=== PATIENT | female | born 1950 | race Caucasian/White ===

== ENCOUNTER → 2019-01-29 | Outpatient (CLI) | payer OTHER ==
[~2019-01-29] MED LIST: ALBU90OI6 INH; ALLO100 PO; AMIT10 PO; ATOR20 PO; Amlodipine Bes2.5 MG PO; BUME2 PO; CALC.25 PO; CIPR500 PO; CLON.1 PO; CONEST.625 PO; EPLE25 PO; GABA400 PO; GEMF600 PO; GLIP10 PO; INSDET100; INSLI100I SUBQ; INSLI75/25 SC; LEVEMIR FL100 UNIT/1 SQ; LEVSOD125 PO; METO100ER PO; MOMENI; PHENA200 PO; POTCHL20ER PO; Prinivil10 MG PO; SITA100T2 PO; VASCEPA1 GM PO
== END | disposition home or self-care (01) ==
LOC: PLD 08:06 → LAB SHORT 08:06
DX: L57.0 Actinic keratosis (principal)
CPT/HCPCS: 88305

== ENCOUNTER 2023-05-09 07:53 | Day surgery (SDC) | payer OTHER ==
[~2023-05-09] VITALS: Ht 160 cm; Wt 82.6 kg
[2023-05-09] MEDS ORDERED: METFORMIN ER G500 MG PO (08:51)
[2023-05-09] MEDS ORDERED: FOLI1 PO (08:52)
[2023-05-09] MEDS ORDERED: METTREX2.5 PO (08:52)
--- NOTE | 2023-05-09 09:01 | NUR ---
05/09/23 0901 Nan Morrison CALL LIGHT WITHIN REACH. TETRACAINE IN RIGHT EYE AT 0847 AND PLEDGETT IN AT 0848
[2023-05-09 10:02] VITALS: BP 155/66
--- NOTE | 2023-05-09 10:08 | NUR ---
05/09/23 1008 Ashish Balderrama iv removeD INTACT. SITE WNL.
== END 2023-05-09 10:19 | disposition home or self-care (01) ==
LOC: ORSCSDS 07:53
PROVIDERS: Student in an Organized Health Care Education/Training Program
PROC: 08RJ3JZ Replacement of Right Lens with Synthetic Substitute, Percutaneous Approach (ICD-10-PCS; principal; 2023-05-09 09:30)
DX: E11.36 Type 2 diabetes mellitus with diabetic cataract (principal); I12.9 Hypertensive chronic kidney disease with stage 1 through stage 4 chronic kidney disease, or unspecified chronic kidney disease; N18.9 Chronic kidney disease, unspecified; E07.9 Disorder of thyroid, unspecified; G47.33 Obstructive sleep apnea (adult) (pediatric); Z79.4 Long term (current) use of insulin; Z79.899 Other long term (current) drug therapy
CPT/HCPCS: 82947; J2250; J3010; J7040; V2632

== ENCOUNTER 2023-05-16 08:07 | Day surgery (SDC) | payer OTHER ==
[~2023-05-16] VITALS: Ht 160 cm; Wt 81.5 kg
[~2023-05-16 08:07] MED LIST changes: +FOLI1 PO; +METFORMIN ER G500 MG PO; +METTREX2.5 PO
[2023-05-16] MEDS ORDERED: GUAI200 PO (08:54)
--- NOTE | 2023-05-16 08:58 | NUR ---
05/16/23 0858 Mary Nickerson AT 0826 PLEROSALINDAET AT 0889
[2023-05-16 10:00] VITALS: BP 134/57
--- NOTE | 2023-05-16 10:13 | NUR ---
05/16/23 1013 Ashish Balderrama IV REMOVED INTACT. SITE WNL. P/T STATES RECORDED B/P WITHING 20% OF BASELINE AT HOME.
== END 2023-05-16 10:08 | disposition home or self-care (01) ==
LOC: ORSCSDS 08:07
PROVIDERS: Student in an Organized Health Care Education/Training Program
PROC: 08RK3JZ Replacement of Left Lens with Synthetic Substitute, Percutaneous Approach (ICD-10-PCS; principal; 2023-05-16 09:30)
DX: E13.36 Other specified diabetes mellitus with diabetic cataract (principal); I12.9 Hypertensive chronic kidney disease with stage 1 through stage 4 chronic kidney disease, or unspecified chronic kidney disease; N18.9 Chronic kidney disease, unspecified; G47.33 Obstructive sleep apnea (adult) (pediatric); E07.9 Disorder of thyroid, unspecified; Z79.4 Long term (current) use of insulin; Z79.899 Other long term (current) drug therapy
CPT/HCPCS: 82947; J2250; J3010; J7040; V2632

== ENCOUNTER 2024-06-05 08:31 | Day surgery (SDC) | payer OTHER ==
[2024-06-05] VITALS (13 sets, daily range): BP systolic 142–206; BP diastolic 63–74
[~2024-06-05] VITALS: Ht 157.5 cm; Wt 81.2 kg
[~2024-06-05 08:31] MED LIST changes: +GUAI200 PO
--- NOTE | 2024-06-05 09:24 | NUR ---
PT AMBULATED TO BR TO VOID. PT'S IN ROOM.
[2024-06-05] MEDS ORDERED: Nitroglycerin 2 MG/20 ML BTL ONE (10:05)
[2024-06-05] MEDS ORDERED: Verapamil HCL 2.5 MG/ML 2ML Injection ONE (10:05)
[2024-06-05] MEDS ORDERED: Heparin Sodium 1000 Units/ML 10ML MDV ONE ×2 (10:05→11:54)
[2024-06-05] MEDS ORDERED: NS 250 ML IV ONE (10:05)
[2024-06-05] MEDS ORDERED: NS 1,000 ML IV ONE ×2 (10:05→10:53)
[2024-06-05] MEDS ORDERED: Midazolam HCl 1MG / ML 2ML Vial ONE (10:53)
[2024-06-05] MEDS ORDERED: FentaNYL Citrate 50 MCG/ML 2 ML Injection ONE (10:53)
[2024-06-05] MEDS ORDERED: Aspirin 325 MG Tab ONE (11:08)
[2024-06-05] MEDS ORDERED: HydrALAZINE HCl 20 MG / ML 1ML Vial ONE (11:55)
--- NOTE | 2024-06-05 13:32 | NUR ---
PT RETURNED TO RECOVERY ROOM IN BED. R RADIAL TR BAND SITE SOFT NON-TENDER WITH NO HEMATOMA, NO PULSATILE BLEEDING AND RIGHT WRIST BOARD IN PLACE. RIGHT FEMORAL GROIN SITE SOFT NON-TENDER WITH NO HEMATOMA, NO PULSATILE BLEEDING AND INTACT DRESSING. PT DENIES CP. PUREWICK PLACED. CALL LIGHT IN REACH.
[2024-06-05] MEDS ORDERED: Aspir 8181 MG PO (13:41)
--- NOTE | 2024-06-05 13:49 | NUR ---
NO CHANGES TO R RAD OR R FEM GROIN SITES.
--- NOTE | 2024-06-05 14:24 | NUR ---
NO CHANGES TO R RAD OR R FEM GROIN SITES. PT'S IN ROOM.
--- NOTE | 2024-06-05 14:56 | NUR ---
11 CC OF AIR REMOVED OUT OF NOW DEFLATED RIGHT TR BAND OVER 10 MIN. R RAD SITE SOFT NON-TENDER WITH NO HEMATOMA, NO PULSATILE BLEEDING. NO CHANGES TO R FEM GROIN SITE. R DP PULSE STILL DOPPLER. DISCHARGE INSTRUCTIONS REVIEWED ALL QUESTIONS ANSWERED. FULL REPORT PROVIDED BRYAN Ortega RN TO ASSUME CARE OF PT.
--- NOTE | 2024-06-05 15:05 | NUR ---
groin site soft and non-tender per pt. radial site soft and non-tender per pt. no bleeding noted at either site.
--- NOTE | 2024-06-05 15:39 | NUR ---
groin site soft and non-tender per pt. radial site soft and non-tender per pt. no bleeding noted at eitehr site.
--- NOTE | 2024-06-05 15:41 | NUR ---
dp pulse present in r foot.
--- NOTE | 2024-06-05 15:41 | NUR ---
pt sat at 30 degrees.
--- NOTE | 2024-06-05 16:50 | NUR ---
pt given dc instructions and verbalized understanding. iv out. cloth dot, arm board, and sling applied. groin site and radial site soft and non-tender per pt. no bleeding noted at either site. pt chnaged. pt to lby via motorized scooter w/ . to drive pt home.
== END 2024-06-05 16:50 | disposition home or self-care (01) ==
LOC: MHTC 08:31
DX: I35.0 Nonrheumatic aortic (valve) stenosis (principal); I25.10 Atherosclerotic heart disease of native coronary artery without angina pectoris; I25.82 Chronic total occlusion of coronary artery; I12.9 Hypertensive chronic kidney disease with stage 1 through stage 4 chronic kidney disease, or unspecified chronic kidney disease; E11.22 Type 2 diabetes mellitus with diabetic chronic kidney disease; N18.9 Chronic kidney disease, unspecified; E78.5 Hyperlipidemia, unspecified; Z88.2 Allergy status to sulfonamides; Z88.1 Allergy status to other antibiotic agents; Z88.5 Allergy status to narcotic agent; Z88.0 Allergy status to penicillin; Z79.82 Long term (current) use of aspirin; Z79.84 Long term (current) use of oral hypoglycemic drugs; Z79.899 Other long term (current) drug therapy
CPT/HCPCS: 76937; 82947; 93454; 99152; 99153; A9270; C1769; C1887; C1894; J0360; J1644; J2250; J3010; J7030; J7050; Q9967

== ENCOUNTER 2024-07-15 07:00 | Observation (INO) | payer OTHER ==
[~2024-07-15] VITALS: Ht 157.5 cm; Wt 78.7 kg
[2024-07-15] VITALS (24 sets, daily range): BP systolic 115–194; BP diastolic 49–90
[~2024-07-15 07:00] MED LIST changes: +ATOR10 PO; -ATOR20 PO; +Aspir 8181 MG PO; +HUMALOG MI100 UNIT/2 SC; -LEVSOD125 PO; +LEVSOD150 PO
[2024-07-15] MEDS ORDERED: CATAPRES0.3 MG PO (07:47)
[2024-07-15] MEDS ORDERED: Ticagrelor 90 MG TABLET ONE (09:28)
[2024-07-15] MEDS ORDERED: Heparin Sodium 1000 Units/ML 10ML MDV ONE ×3 (09:31→11:12)
[2024-07-15] MEDS ORDERED: NS 1,000 ML IV ONE ×2 (09:31→09:32)
[2024-07-15] MEDS ORDERED: Nitroglycerin 2 MG/20 ML BTL ONE (09:32)
[2024-07-15] MEDS ORDERED: NS 250 ML IV ONE (09:32)
[2024-07-15] MEDS ORDERED: Midazolam HCl 1MG / ML 2ML Vial ONE (10:01)
[2024-07-15] MEDS ORDERED: FentaNYL Citrate 50 MCG/ML 2 ML Injection ONE (10:01)
[2024-07-15] MEDS ORDERED: HydrALAZINE HCl 20 MG / ML 1ML Vial ONE (10:45)
[2024-07-15] MEDS ORDERED: Lidocaine 2%-Epineph 1:100000 20 ML MDV ONE (13:30)
--- NOTE | 2024-07-15 13:30 | NUR ---
PT R FEMORAL OOZING AT SITE. MANUAL PRESSURE HELD UNTIL HEMOSTASIS. DR CRABTREE AWARE. CONTINUING TO MONITOR. VSS.
[2024-07-15] MEDS ORDERED: Nitroglycerin 0.4 MG SUBL ONE (14:13)
--- NOTE | 2024-07-15 14:21 | NUR ---
PT RESTING COMFORTABLY AT THIS TIME. VSS. NADN. PT GIVEN SL NITRO X 1 FOR CONTINUOUS CP. REPORTS CP HAS REDUCED SINCE SL NITRO. CONTINUOUS MONITORING IN PLACE. R FEMORAL SITE REMAINS C/D/I. DR CRABTREE SPOKE WITH PATIENT AND FAMILY REGARDING ADMISSION FOR THE NIGHT. AWAITING BED ASSIGNMENT AT THIS TIME.
[2024-07-15] MEDS ORDERED: CLOP75 PO (14:43)
--- NOTE | 2024-07-15 14:45 | NUR ---
REPORT GIVEN TO LISA RN PCU. VSS. CABAN. PT R FEMORAL SITE REMAINS STABLE. NO BLEEDING OR HEMATOMA NOTED. PT TO PCU 19 FOR CONTINUATION OF CARE.
[2024-07-15] MEDS ORDERED: Magnesium Hydroxide Conc 10 ML UDC PO PRN (14:50)
[2024-07-15] MEDS ORDERED: Bisacodyl 10 MG Supp PR PRN (14:55)
[2024-07-15] MEDS ORDERED: FLU VACC TS2024-25(6MOS UP)/PF 45 MCG/0.5 ML SYRINGE IM SCH (14:55)
[2024-07-15] MEDS ORDERED: Nitroglycerin 0.4 MG SUBL SL PRN (15:15)
[2024-07-15] MEDS ORDERED: Bumetanide 1 MG Tab PO PRN (15:45)
[2024-07-15] MEDS ORDERED: Albuterol HFA200 ACT/6.7 GM INH INH PRN (15:55)
--- NOTE | 2024-07-15 16:35 | NUR ---
PT [facility] AT 1455 THIS AFTERNOON THE PT IS A&OX4, CALLS APPROPRAITELY, AND MAKES HER NEEDS KNOWN. SHE CAME IN WITH RIGHT GROIN ACCESS. SITE TENDER, BUT W/O BLEEDING OR HEMATOMA. DRESSING C/D/I. STENTS CARDS WERE GIVEN TO THE PT AND ARE IN HER PURSE. ON TELE SHE IS SR 60'S, BP STABLE. SHE IS ON RA W/ SP02 >93%. SHE DENIES SOB. THE PT DOES REPORT 3/10 MIDSTERNAL CHEST PAIN. PAIN TOLERABLE AT THIS TIME. SEQUENCE VITAL SIGNS TAKEN PER PROTOCOL. SEE NOTES FOR UPDATES.
--- NOTE | 2024-07-15 16:53 | NUR ---
Patient is lying in bed and alert. She tells me about her medical problems and about the procedure performed today. She also explains about her spouse Zechariah and his recent diagnosis of ALS, about their strong Islam marti and about their new hopes and dreams. I provided therapeutic listeing, theological insights and prayer. Patient responded well and showed signs of reduced stress.
--- NOTE | 2024-07-15 17:22 | NUR ---
DR. DUARTE CALLED ABOUT CBG 350. HE WANTS THE PT'S 2100 DOSE OF HUMLG MIX GIVEN NOW.
[2024-07-15] MEDS ORDERED: Acetaminophen 325 MG TABLET PO PRN (17:50)
--- NOTE | 2024-07-15 18:20 | NUR ---
SHIFT SUMMARY THE PT IS A&OX4, CALLS APPROPRAITELY, MAKES HER NEEDS KNOWN. THE PT IS NOW ABLE TO GET OOB D/T RIGHT GROIN SITE RECOVERY. VITAL SIGNS REMAIN STABLE. HER RIGHT GROIN IS [employer] OFFICER, SHE WAS MEDICATED PER EMAR W/ TYLENOL. THE DRESSING IS C/D/I. PT USED A PURWICK WHILE ON BEDREST. SHE IS ABLE TO GET OOB 1P ASSIST W/ FWW. ON TELE THE PT HAS BEEN SR AND BP IS STABLE. CHEST PAIN HAS RESOLVED SINCE THE PT HAS BEEN ABLE TO SIT UP IN THE BED. NO ADDITIONAL NITRO GIVEN SINCE IT WAS GIVEN IN THE RECOVERY ROOM. NITRO SL IN EMAR PRN. SHE IS ON RA AND SP02 >93%. THE PT DENIES ANY SOB. DR. MASON ROUNDED ON THE PT THIS EVENING, NO NEW ORDERS. SHE IS ACHS CBG CHECKS AND HER EVENING BLOOD SUGAR WAS 350. DR. DUARTE WANTED THE 2100 DOSE OF INSULIN GIVEN WITH DINNER. SEE NOTES FOR ANY UPDATES.
[2024-07-15] MEDS ORDERED: Insulin Lisp Protam 75/Lisp 25 100 Unit/ML 3ML Pen SC SCH ×2 (21:00)
[2024-07-15] MEDS ORDERED: INSULIN LISPRO SC SCH (21:00)
[2024-07-15] MEDS ORDERED: Metoprolol Succinate 50 MG TABCR PO SCH (21:00)
[2024-07-15] MEDS ORDERED: INSULIN NPL SC SCH (21:00)
[2024-07-15] MEDS ORDERED: Lisinopril 10 MG Tab PO SCH (21:00)
[2024-07-15] MEDS ORDERED: Docusate Sodium 100 MG Cap PO SCH (21:00)
[2024-07-15] MEDS ORDERED: CloNIDine HCl 0.2 MG Tab PO SCH (21:00)
[2024-07-15] MEDS ORDERED: Gemfibrozil 600 MG Tab PO SCH (21:00)
[2024-07-15] MEDS ORDERED: Gabapentin 400 MG Cap PO SCH (21:00)
[2024-07-15] MEDS ORDERED: Sennosides 8.6 MG Tab PO SCH (21:00)
[2024-07-16] VITALS (7 sets, daily range): BP systolic 123–163; BP diastolic 53–60
[2024-07-16 04:57] LABS: BASOPHILS ABSOLUTE AUTO 0.02 K/mm3 (0.00-0.23); BASOPHILS PERCENT AUTO 0 % (0-2); EOSINOPHILS ABSOLUTE AUTO 0.15 K/mm3 (0.00-0.68); EOSINOPHILS PERCENT AUTO 2 % (0-6); Hematocrit 31.4 % (33.0-51.0); Hemoglobin 10.9 g/dL (11.5-16.0); IMMATURE GRAN ABSOLUTE AUTO 0.03 K/mm3 (0.00-0.10); IMMATURE GRAN PERCENT AUTO 0 % (0-1); LYMPHOCYTES ABSOLUTE AUTO 1.34 K/mm3 (0.84-5.20); LYMPHOCYTES PERCENT AUTO 16 % (21-46); MONOCYTES ABSOLUTE AUTO 0.92 K/mm3 (0.16-1.47); MONOCYTES PERCENT AUTO 11 % (4-13); Mean Corpuscular HGB 32.9 pg (26.0-34.0); Mean Corpuscular HGB Conc 34.7 g/dL (31.5-36.5); Mean Corpuscular Volume 95 fL (80-100); Mean Platelet Volume 9.7 fL (9.1-12.4); NEUTROPHILS ABSOLUTE AUTO 5.69 K/mm3 (1.96-9.15); NEUTROPHILS PERCENT AUTO 70 % (41-73); Platelet Count 162 K/mm3 (150-400); RDW Coefficient Variation 13.2 % (11.7-14.2); RDW Standard Deviation 45.2 fL (35.1-46.3); Red Blood Cell Count 3.31 M/mm3 (3.80-5.20); White Blood Cell Count 8.15 K/mm3 (4.00-11.30)
[2024-07-16 05:20] LABS: Albumin, Blood 3.1 g/dL (3.4-5.0); Anion Gap 8 mmol/L (3-11); Blood Urea Nitrogen 45 mg/dL (8-24); Bun/Creatinine Ratio 36.6 (12.0-20.0); CO2, Blood 27 mmol/L (21-32); Calcium, Blood 9.8 mg/dL (8.5-10.1); Chloride, Blood 108 mmol/L (98-108); Creatinine, Blood 1.23 mg/dL (0.40-1.00); Glomerular Filtration Rate 47 (60-); Glucose, Blood 144 mg/dL (70-99); Magnesium, Blood 2.3 mg/dL (1.6-2.4); Phosphorus, Blood 4.1 mg/dL (2.5-4.9); Potassium, Blood 3.7 mmol/L (3.5-5.5); Sodium, Blood 139 mmol/L (136-145)
[2024-07-16] MEDS ORDERED: Levothyroxine Sodium 0.15 MG Tab PO SCH (06:00)
--- NOTE | 2024-07-16 06:56 | NUR ---
PT STABLE THROUGHOUT SHIFT. VS REMAIN WNL, PT AOX4, SBA TO BSC. PT ABLE TO USE CALL LIGHT APPROPRIATELY. BED IN LOWEST POSITION, BRAKES ON, UPPER SIDE RAILS UP, CALL LIGHT AND BED SIDE TABLE IN REACH. RT GROIN SITE REMAINS INTACT, NO S/S HEMATOMA OR BLEEDING. PT DOES REPORT PAIN AT SITE WHICH IS MANAGED WITH TYLENOL WELL. PT DID RECEIVE EXTRA INSULIN COVERAGE AND DID WELL, NO S/S HYPOGLYCEMIA. PT WAS ABLE TO SLEEP MOST OF THE SHIFT AND REPORTED NO PROBLEMS.
[2024-07-16] MEDS ORDERED: Insulin Human Lispro 100 Units/ML 3ML Syringe SC SCH (07:30)
[2024-07-16] MEDS ORDERED: Allopurinol 100 MG Tab PO SCH (09:00)
[2024-07-16] MEDS ORDERED: Bumetanide 1 MG Tab PO SCH (09:00)
[2024-07-16] MEDS ORDERED: Eplerenone 25 MG Tab PO SCH (09:00)
[2024-07-16] MEDS ORDERED: Aspirin 81 MG TabEC PO SCH (09:00)
[2024-07-16] MEDS ORDERED: AmLODIPine Besylate 5 MG Tab PO SCH ×2 (09:00)
[2024-07-16] MEDS ORDERED: Atorvastatin 10 MG Tab PO SCH (09:00)
[2024-07-16] MEDS ORDERED: Folic Acid 1 MG TAB PO SCH (09:00)
[2024-07-16] MEDS ORDERED: Clopidogrel Bisulfate 75 MG Tab PO SCH (09:00)
[2024-07-16] MEDS ORDERED: Heparin Sodium 5000 Units/ML 1ML MDV SC SCH (09:00)
[2024-07-16] MEDS ORDERED: Clopidogrel Bisulfate 300 MG Cap PO ONE (09:00)
[2024-07-16] MEDS ORDERED: AmLODIPine Besylate 5 MG Tab PO ONE (09:05)
--- NOTE | 2024-07-16 12:03 | NUR ---
DISCHARGE NOTE VSS, PT DENIED FEELINGS OF CHEST PAIN/PRESSURE. R GROIN SITE FROM S/P ANGIOGRAM WAS FREE FROM ANY APPARENT BLEEDING/HEMATOMA, DRESSING WAS REMOVED BY THIS RN, SITE WAS CLEANED AND BANDAGE APPLIED. THIS RN DISCUSSED DISCHARGE INSTRUCTIONS INCLUDING POST ANGIO SITE CARE, FOLLOW UP APPOINTMENTS AND MEDICATION REGIMEN. PT LEFT PCU AT APPROX. 1200 VIA WHEELCHAIR AND WAS ESCORTED BY MARIAN VASQUEZ.
[2024-07-17] MEDS ORDERED: Clopidogrel Bisulfate 75 MG Tab PO SCH (09:00)
[2024-07-17] MEDS ORDERED: AmLODIPine Besylate 5 MG Tab PO SCH (09:00)
== END 2024-07-16 13:23 | disposition home or self-care (01) ==
LOC: MHTC 07:00 → PCU 07:02
PROVIDERS: Family Medicine; ADMIT Family Medicine
DX: I35.0 Nonrheumatic aortic (valve) stenosis (principal); E78.5 Hyperlipidemia, unspecified; I25.10 Atherosclerotic heart disease of native coronary artery without angina pectoris; I12.9 Hypertensive chronic kidney disease with stage 1 through stage 4 chronic kidney disease, or unspecified chronic kidney disease; E11.22 Type 2 diabetes mellitus with diabetic chronic kidney disease; N18.9 Chronic kidney disease, unspecified; E78.00 Pure hypercholesterolemia, unspecified; E03.9 Hypothyroidism, unspecified; L40.9 Psoriasis, unspecified; Z88.0 Allergy status to penicillin; Z88.2 Allergy status to sulfonamides; Z88.8 Allergy status to other drugs, medicaments and biological substances
CPT/HCPCS: 36415; 76937; 80048; 80069; 82947; 83735; 85007; 85025; 85027; 85347; 85610; 92978; 93005; 93010; 93454; 94762; 96372; 99152; 99153; A9270; C1725; C1753; C1760; C1761; C1769; C1874; C1887; C1894; C9600; G0378; J0360; J1644; J1815; J2250; J3010; J7030; J7050; Q9967

== ENCOUNTER 2024-08-15 12:06 | Inpatient (IN) | payer OTHER ==
[~2024-08-15] VITALS: Ht 157.5 cm; Wt 86.4 kg
[2024-08-15] VITALS (22 sets, daily range): BP systolic 152–205; BP diastolic 55–78
[~2024-08-15 12:06] MED LIST changes: +BUME1 PO; -BUME2 PO; +CLONIDINE PO; +CLOP75 PO
[2024-08-15 13:45] LABS: BASOPHILS ABSOLUTE AUTO 0.03 K/mm3 (0.00-0.23); BASOPHILS PERCENT AUTO 0 % (0-2); EOSINOPHILS ABSOLUTE AUTO 0.12 K/mm3 (0.00-0.68); EOSINOPHILS PERCENT AUTO 1 % (0-6); Hematocrit 26.8 % (33.0-51.0); IMMATURE GRAN ABSOLUTE AUTO 0.04 K/mm3 (0.00-0.10); IMMATURE GRAN PERCENT AUTO 0 % (0-1); LYMPHOCYTES ABSOLUTE AUTO 1.12 K/mm3 (0.84-5.20); LYMPHOCYTES PERCENT AUTO 12 % (21-46); MONOCYTES ABSOLUTE AUTO 0.89 K/mm3 (0.16-1.47); MONOCYTES PERCENT AUTO 9 % (4-13); Mean Corpuscular HGB 32.4 pg (26.0-34.0); Mean Corpuscular HGB Conc 33.6 g/dL (31.5-36.5); Mean Corpuscular Volume 96 fL (80-100); NEUTROPHILS ABSOLUTE AUTO 7.32 K/mm3 (1.96-9.15); NEUTROPHILS PERCENT AUTO 77 % (41-73); Platelet Count 108 K/mm3 (150-400); RDW Coefficient Variation 13.5 % (11.7-14.2); Red Blood Cell Count 2.78 M/mm3 (3.80-5.20); White Blood Cell Count 9.52 K/mm3 (4.00-11.30)
[2024-08-15 13:53] LABS: International Normalized Ratio 1.04; Prothrombin Time Results 11.1 Sec (9.7-11.5)
[2024-08-15 14:23] LABS: Albumin, Blood 2.7 g/dL (3.4-5.0); Albumin/Globulin Ratio 0.7 (0.8-1.8); Bilirubin, Total 0.4 mg/dL (0.1-1.0); Bun/Creatinine Ratio 14.1 (12.0-20.0); Calcium, Blood 8.9 mg/dL (8.5-10.1); Creatinine, Blood 5.19 mg/dL (0.40-1.00); Globulin, Blood 3.7 g/dL (2.2-4.0); Potassium, Blood 6.7 mmol/L (3.5-5.5); Total Protein, Blood 6.4 g/dL (6.4-8.2)
[2024-08-15] MEDS ORDERED: CALCIUM GLUC IN NACL, ISO-OSM 100 ML IV ONE (14:30)
[2024-08-15] MEDS ORDERED: Insulin Regular 100 Unit/ML 1ML Dose IV ONE (14:35)
[2024-08-15] MEDS ORDERED: Dextrose 50% 50 ML Syringe IV ONE (14:35)
[2024-08-15] MEDS ORDERED: Dextrose 50% 50 ML Vial IV ONE (15:00)
[2024-08-15] MEDS ORDERED: TraZODone HCl 50 MG Tab PO PRN (15:20)
[2024-08-15] MEDS ORDERED: Bisacodyl 10 MG Supp PR PRN (15:20)
[2024-08-15] MEDS ORDERED: Magnesium Hydroxide Conc 10 ML UDC PO PRN (15:20)
[2024-08-15] MEDS ORDERED: FLU VACC TS2024-25(6MOS UP)/PF 45 MCG/0.5 ML SYRINGE IM SCH (15:20)
[2024-08-15] MEDS ORDERED: Ondansetron 4 MG TAB PO PRN (15:25)
[2024-08-15] MEDS ORDERED: HydrALAZINE HCl 20 MG / ML 1ML Vial IV PRN (16:10)
[2024-08-15 16:23] LABS: Influenza A, PCR NEGATIVE (NEGATIVE); Influenza B, PCR NEGATIVE (NEGATIVE); Resp Syncytial Virus, PCR NEGATIVE (NEGATIVE); SARS-Cov-2 (COVID-19) PCR, MMC NEGATIVE (NEGATIVE)
[2024-08-15] MEDS ORDERED: Insulin Human Lispro 100 Units/ML 3ML Syringe SC SCH (16:30)
[2024-08-15] MEDS ORDERED: Heparin Sodium 1000 Units/ML 10ML MDV ONE (16:31)
[2024-08-15] MEDS ORDERED: NS 1,000 ML IV ONE (16:32)
[2024-08-15] MEDS ORDERED: Midazolam HCl 1MG / ML 2ML Vial ONE (16:32)
[2024-08-15] MEDS ORDERED: NS 500 ML IV ONE (16:32)
[2024-08-15] MEDS ORDERED: FentaNYL Citrate 50 MCG/ML 2 ML Injection ONE (16:33)
[2024-08-15] MEDS ORDERED: Isosorbide Mono30 MG PO (18:10)
--- NOTE | 2024-08-15 18:42 | NUR ---
THIS RN ASSUMED CARE AT 1810, PT IS STABLE, VITAL SIGNS HR: 57, SPO2: 92%, RR:20, BLOOD PRESSURE 152/63 MAP OF 88. LASHANDA SYED RN AND CAYLA ABEL RN HELPED WITH ADMITTING PAPERWORK AND HELPED SETTLE PT. PAGE DESIGNER NURSE TAKING OVER.
--- NOTE | 2024-08-15 19:49 | NUR ---
ASSUMED CARE AT 1900 PATIENT LETHARGIC AT TIMES. RESPONDS TO VERBAL STIMULI AND ABLE TO HOLD A CONVERSATIONS. ORIENTED X4. SP02 96% ON 1L VIA NC, DENIES SOB. HR SB 57, STATES SOME SLIGHT CP 08/19 SINCE TAVR ON 08/12. BP STABLE. BILATERAL GROIN SITES AND LEFT RADIAL WITH SMALL AMOUNT OF BRUISING, ALL DRESSINGS C/D/I. PUREWICK IN PLACE. PATIENT ABLE TO REPOSITION IN BED. TO DIALYSIS AT APPROX 1945
[2024-08-15] MEDS ORDERED: Lactobacil 2-S.Thermo-Bifido 1 1 Cap PO SCH (21:00)
[2024-08-15] MEDS ORDERED: Famotidine 20 MG Tab PO SCH (21:00)
--- NOTE | 2024-08-15 22:09 | NUR ---
PATIENT BACK FROM DIALYSIS TO ICU 2. PATIENT IS ALERT AND ORIENTED X4. 2L NC, SP02 97%. HR SR 70s, BP HYPERTENSIVE. DENIES CP PRESSURE. PUREWICK IN PLACE. CALL LIGHT IN REACH
[2024-08-16] VITALS (33 sets, daily range): BP systolic 122–196; BP diastolic 45–129
[2024-08-16] MEDS ORDERED: Ondansetron HCl 2 MG / ML 2ML Vial IV PRN (01:45)
[2024-08-16] MEDS ORDERED: FentaNYL Citrate 50 MCG/ML 2 ML Injection IV PRN (03:15)
[2024-08-16] MEDS ORDERED: Labetalol HCL 5 MG/ML 20MLVIAL IV PRN (03:15)
[2024-08-16] MEDS ORDERED: Nitroglycerin 0.4 MG SUBL SL PRN (03:15)
[2024-08-16 03:57] LABS: BASOPHILS ABSOLUTE AUTO 0.04 K/mm3 (0.00-0.23); BASOPHILS PERCENT AUTO 0 % (0-2); EOSINOPHILS ABSOLUTE AUTO 0.15 K/mm3 (0.00-0.68); EOSINOPHILS PERCENT AUTO 2 % (0-6); Hemoglobin 9.8 g/dL (11.5-16.0); IMMATURE GRAN ABSOLUTE AUTO 0.04 K/mm3 (0.00-0.10); IMMATURE GRAN PERCENT AUTO 0 % (0-1); LYMPHOCYTES ABSOLUTE AUTO 0.89 K/mm3 (0.84-5.20); LYMPHOCYTES PERCENT AUTO 10 % (21-46); MONOCYTES ABSOLUTE AUTO 0.83 K/mm3 (0.16-1.47); MONOCYTES PERCENT AUTO 9 % (4-13); Mean Corpuscular Volume 94 fL (80-100); Mean Platelet Volume 10.9 fL (9.1-12.4); NEUTROPHILS ABSOLUTE AUTO 7.35 K/mm3 (1.96-9.15); NEUTROPHILS PERCENT AUTO 79 % (41-73); Platelet Count 106 K/mm3 (150-400); RDW Coefficient Variation 13.4 % (11.7-14.2); RDW Standard Deviation 46.2 fL (35.1-46.3); Red Blood Cell Count 2.97 M/mm3 (3.80-5.20)
[2024-08-16 04:14] LABS: Magnesium, Blood 2.1 mg/dL (1.6-2.4)
[2024-08-16 04:19] LABS: Alanine Aminotransfer (ALT/SGP <6 U/L (12-78); Albumin, Blood 2.7 g/dL (3.4-5.0); Albumin/Globulin Ratio 0.7 (0.8-1.8); Alk Phos 69 U/L (50-136); Anion Gap 16 mmol/L (3-11); Aspartate Aminotrans (AST/SGOT 16 U/L (12-37); Bilirubin, Total 0.4 mg/dL (0.1-1.0); Blood Urea Nitrogen 53 mg/dL (8-24); Bun/Creatinine Ratio 14.9 (12.0-20.0); CO2, Blood 21 mmol/L (21-32); Calcium, Blood 9.3 mg/dL (8.5-10.1); Chloride, Blood 102 mmol/L (98-108); Creatinine, Blood 3.56 mg/dL (0.40-1.00); Glomerular Filtration Rate 13 (60-); Glucose, Blood 194 mg/dL (70-99); Sodium, Blood 135 mmol/L (136-145); Total Protein, Blood 6.7 g/dL (6.4-8.2)
[2024-08-16 04:20] LABS: Potassium, Blood 4.4 mmol/L (3.5-5.5)
[2024-08-16] MEDS ORDERED: Levothyroxine Sodium 0.15 MG Tab PO SCH (06:00)
--- NOTE | 2024-08-16 06:35 | NUR ---
SHIFT SUMMARY PATIENT REMAINS ALERT AND ORIENTED X4. SP02 93% ON 2-3L VIA NC. DENIES SOB. HR ST 103, BP HYPERTENSIVE, MEDICATED PER EMAR. PATIENT ALSO COMPLAINING OG NAUSEA, SMALL AMOUNT OF EMESIS, MEDICATED PER EMAR. PATIENT STARTED HAVING CHEST PAIN AT APPROX 0315, 410, MID CHEST. DOCTOR NOTIFIED, MEDICATED FOR CHEST PAIN. AM TROPONIN TRENDING DOWN. CHEST PAIN IMPROVING THIS MORNING. PATIENT COMPLAINING THAT SHES UNABLE TO URINATE, BLADDER SCAN DONE, 700 MLS, STRAIGHT CATH, 600 OUT. PUREWICK BACK IN PLACE. CALL LIGHT IN REACH
[2024-08-16] MEDS ORDERED: INSULIN NPL SC SCH (08:00)
[2024-08-16] MEDS ORDERED: INSULIN LISPRO SC SCH (08:00)
[2024-08-16] MEDS ORDERED: Eplerenone 25 MG Tab PO SCH (09:00)
[2024-08-16] MEDS ORDERED: Atorvastatin 10 MG Tab PO SCH (09:00)
[2024-08-16] MEDS ORDERED: Aspirin 81 MG Chew PO SCH (09:00)
[2024-08-16] MEDS ORDERED: Tamsulosin HCl 0.4 MG Cap PO SCH (09:00)
[2024-08-16] MEDS ORDERED: Clopidogrel Bisulfate 75 MG Tab PO SCH (09:00)
[2024-08-16] MEDS ORDERED: Allopurinol 100 MG Tab PO SCH (09:00)
[2024-08-16] MEDS ORDERED: CloNIDine HCl 0.2 MG Tab PO SCH ×3 (09:00)
[2024-08-16] MEDS ORDERED: Metoprolol Succinate 25 MG TABCR PO SCH (09:00)
[2024-08-16] MEDS ORDERED: Enoxaparin 40 MG/0.4 ML SYR SC SCH (09:00)
--- NOTE | 2024-08-16 10:28 | NUR ---
ASSUMED CARE OF PATIENT AT APPROXIMATELY 0700. REPORT RECEIVED FROM SAGE BECKFORD. PT ASLEEP IN BED DURING BEDSIDE REPORT. CONTINOUS CARDIAC MONITORING SHOWS S-TACH, HYPERTENSIVE AT 182/64, MAP > 65. ON 2LPM O2 VIA NC WITH O2 SATURATION > 92%. BILATERAL GROIN SITES AND L RADIAL ACCESS SITE VISUALIZED. SMALL BRUSING, OTHERWISE C/D/I. SEE SHIFT ASSESSMENT FOR FULL DETAILS.
[2024-08-16 10:54] LABS: CHOL/HDL RATIO 3.1; Cholesterol 131 mg/dL (50-200); HDL Cholesterol 42 mg/dL (>39); LDL/HDL RATIO 1.3; Low Density Lipoprotein Chol 55 mg/dL (0-110); Triglycerides 168 mg/dL (30-160); Very Low Density Lipoprot Chol 33 mg/dL (6-32)
[2024-08-16] MEDS ORDERED: Heparin Sodium 5000 Units/ML 1ML MDV SC SCH (16:00)
--- NOTE | 2024-08-16 16:15 | NUR ---
REPORT GIVEN TO STOUT AT 1552. PT TRANSFERR[facility] TO [facility], ESCORTED BY PCT AT APPROXIMATELY 1615.
--- NOTE | 2024-08-16 17:14 | NUR ---
PT ARRIVED IN THE UNIT FROM ICU VIA WHEELCHAIR PT ABLE TO STAND AND TRANSPORT. PT AMBULATES VIA WALKER TO THE BATHROOM. ON 2L OF O2 VIA NASAL CANNULA. VITALS HRR SR 80'S, SBP 140'S, SATS ABOVE 95% ON 2L OF O2, AFEBRILE. PT ALERT AND ORIENTED PLEASANT AND COOPERATIVE WITH CARES. DIALYSIS CATH IN PLACE WITH DRESSING CDI, BILATERAL GROIN SITES DRESSING CDI WE3LL. PT HAS SOME DEPENDENT EDEMA ON BOTH UPPER AND LOWER EXTREMITIES BILATERAL ELASTIC STOCKINGS IN PLACE. BOTH UPPER3 EXTREMITIES ELEVATED IN PILLOWS. FAMILY AT BEDSIDE AT THIS TIME, NO OTHER ISSUES REPORTED, CALL LIGHTS IN REACH WILL REPORT TO ONCOMING SHIFT
[2024-08-16] MEDS ORDERED: Metoprolol Tartrate 25 MG Tab PO SCH (21:00)
[2024-08-16] MEDS ORDERED: AmLODIPine Besylate 5 MG Tab PO SCH (21:00)
--- NOTE | 2024-08-16 21:24 | NUR ---
ASSUMED CARE OF THIS PATIENT AT 1900. PT IS A+O X4, ABLE TO MAKE NEEDS KNOWN, REPOSTIONS SELF IN BED. DENIES PAIN OF ANY KIND. VSS. ON 2 LITERS NC SATTING AT 96%. PATIENT TRANSFERED SELF TO THE BATHROOM TO ATTEMPT TO HAVE A BM, PATIENT HAS NOT HAD A BM IN OVER 3 DAYS AND WAS PROVIDED MILK OF MAG WITH EVENING MEDS. PT UNABLE TO HAVE BM AT THIS TIME BUT DID VOID 100 mls OF YELLOW URINE. CALL LIGHT IN REACH.
[2024-08-17] VITALS (10 sets, daily range): BP systolic 141–198; BP diastolic 49–66
[2024-08-17 04:54] LABS: Hematocrit 26.6 % (33.0-51.0)
[2024-08-17 05:22] LABS: Magnesium, Blood 2.4 mg/dL (1.6-2.4)
[2024-08-17 05:35] LABS: Alanine Aminotransfer (ALT/SGP <6 U/L (12-78); Albumin, Blood 2.6 g/dL (3.4-5.0); Albumin/Globulin Ratio 0.7 (0.8-1.8); Alk Phos 62 U/L (50-136); Anion Gap 12 mmol/L (3-11); Aspartate Aminotrans (AST/SGOT 22 U/L (12-37); Bilirubin, Total 0.3 mg/dL (0.1-1.0); Blood Urea Nitrogen 41 mg/dL (8-24); Bun/Creatinine Ratio 20.1 (12.0-20.0); CO2, Blood 28 mmol/L (21-32); Calcium, Blood 9.2 mg/dL (8.5-10.1); Chloride, Blood 98 mmol/L (98-108); Creatinine, Blood 2.04 mg/dL (0.40-1.00); Globulin, Blood 3.8 g/dL (2.2-4.0); Glomerular Filtration Rate 25 (60-); Glucose, Blood 182 mg/dL (70-99); Phosphorus, Blood 3.4 mg/dL (2.5-4.9); Potassium, Blood 3.2 mmol/L (3.5-5.5); Sodium, Blood 135 mmol/L (136-145); Total Protein, Blood 6.4 g/dL (6.4-8.2)
--- NOTE | 2024-08-17 05:42 | NUR ---
NURSE NOTE PT REPORTED CHEST PRESSURE OF A 4 OUT OF 10. PT STATES SHE HAS HAD THIS TYPE OF PAIN BEFORE JUST NOT DURING THIS ADDMISTION. EKG OBTAINED SHOWS NORMAL SINUS RHYTH, W/ INCOMPLETE LEFT BUNDLE BRANCH BLOCK, PT GIVEN 25 mcg OF FENTANYL, PT THEN REPORTED PAIN DECREASED FROM A 4 OUT OF 10 TO A 3. MD REYES CALLED VIA TELEPHONE, LOOKED OVER CHART AND PT LAST TROPONIN OF 478 ON 08/16/24 AT 0313. NO NEW ORDERS AT THIS TIME. PT HAS BEEN HYPERTENSIVE THIS MORNING PRIOR TO ONSET OF CHEST PAIN, BP OF 198/65 TREATED W/ 10 MG HYDRALAZINE AT 0350, REPEAT BP 175/66 AT 0422. REPEAT 10 MG HYDRALAZINE GIVEN AT 0455. BP AT 0525 191/64. WILL CONTINUE TO MONTIOR AND FOLLOW CARE PLAN
--- NOTE | 2024-08-17 06:46 | NUR ---
NURSE NOTE PT REMAINS A+O X4, ABLE TO MAKE NEEDS KNOWN. CHEST PAIN/ PRESSURE REMAINS BETWEEN 3-4 OUT OF 10, PT STATES IT COMES AND GOES. AFEBRILE. SATTING 95% ON 1L NC. TELE REMAINS SHOWING SINUS AT A RATE OF 85. WAS UPDATED OVER THE PHONE ABOUT HOW PT NIGHT WENT AND WOULD LIKE A CALL BACK FROM DAY SHIFT RN ABOUT PLAN OF CARE MOVING FORWARD. PT STATES SHE WOULD LIKE TO TRY TO REST SHE DID NOT GET MUCH REST LAST NIGHT OR THE LAST FEW DAYS. CALL LIGHT IN REACH, WILL REPORT TO ONCOMING RN.
[2024-08-17] MEDS ORDERED: NS 1,000 ML IV SCH (08:35)
[2024-08-17] MEDS ORDERED: Isosorbide Mononitrate 60 MG TABCR PO SCH (09:00)
[2024-08-17] MEDS ORDERED: Polyethylene Glycol 3350 17 gm PO SCH (14:00)
--- NOTE | 2024-08-17 18:06 | NUR ---
PT SUMMARY; NO RECENT CHEST PAIN REPORTED FOR THE SHIFT, PT HAS REPORTED NO BM SINCE THE 2ND, PT STARTED ON BOWEL CARE, MIRALAX AND 2 PRUNEJUICE GIVEN FOR THE SHIFT WITH NO RESULT, PT AMBULATED AROUND THE UNIT VIA WALKER TO HELP WITH THE BOWEL MOVEMENT, PT HAD A SMALL BM BEFORE DINNER AND WOULD LIKE SUPPOSITORY TONIGHT. ABD XRAY DONE SHOWED SOME FECAL MATTER ON THE COLON AREA WITH SOME GAS DISTENTION. PT REPORTS PASSING GAS. PT URINATED ABOUT 2L OF URINE THSI SHIFT, NS @ 100MLS/HR STARTED PER DR DÍAZ. NEPHROLOGISTS CAME IN TO DISCUSS FURTHER PLAN WITH THE PT. NO DIALYSIS AT THIS TIME. VITALS HRR SR 80'S, SBP 140-150'S, SATS ABOVE 905 ON RA, AFEBRILE. POOR APPETITE TODAY DUE TO CONSTIPATION. NO OTHER ISSUES REPORTED FOR THE SHIFT PT HAS BEEN CALLING APPROPRIATELY. WILL REPORT TO ONCOMING SHIFT
[2024-08-17] MEDS ORDERED: Docusate Sodium/Senna 1 Tab PO SCH (21:00)
[2024-08-18 00:06] VITALS: BP 153/58
[2024-08-18 04:12] LABS: BASOPHILS ABSOLUTE AUTO 0.04 K/mm3 (0.00-0.23); BASOPHILS PERCENT AUTO 1 % (0-2); EOSINOPHILS ABSOLUTE AUTO 0.28 K/mm3 (0.00-0.68); EOSINOPHILS PERCENT AUTO 6 % (0-6); Hematocrit 25.1 % (33.0-51.0); Hemoglobin 8.4 g/dL (11.5-16.0); IMMATURE GRAN ABSOLUTE AUTO 0.02 K/mm3 (0.00-0.10); IMMATURE GRAN PERCENT AUTO 0 % (0-1); LYMPHOCYTES ABSOLUTE AUTO 1.12 K/mm3 (0.84-5.20); LYMPHOCYTES PERCENT AUTO 24 % (21-46); MONOCYTES ABSOLUTE AUTO 0.62 K/mm3 (0.16-1.47); MONOCYTES PERCENT AUTO 13 % (4-13); Mean Corpuscular HGB 32.6 pg (26.0-34.0); Mean Corpuscular HGB Conc 33.5 g/dL (31.5-36.5); Mean Corpuscular Volume 97 fL (80-100); Mean Platelet Volume 10.7 fL (9.1-12.4); NEUTROPHILS ABSOLUTE AUTO 2.59 K/mm3 (1.96-9.15); NEUTROPHILS PERCENT AUTO 55 % (41-73); Platelet Count 140 K/mm3 (150-400); RDW Coefficient Variation 13.4 % (11.7-14.2); RDW Standard Deviation 47.5 fL (35.1-46.3); Red Blood Cell Count 2.58 M/mm3 (3.80-5.20); White Blood Cell Count 4.67 K/mm3 (4.00-11.30)
--- NOTE | 2024-08-18 04:33 | NUR ---
SHIFT SUMMARY. SHIFT HAS BEEN UNREMARKABLE. PT AOX4, PLEASANT, COOPERATIVE, ABLE TO MAKE NEEDS KNOWN. HAS BEEN ABLE TO REST COMFORTABLY THROUGHOUT MUCH OF SHIFT. HAS DENIED PAIN THROUGHOUT SHIFT. BP ELEVATED AT TIMES BUT HAS BEEN ABLE TO COME DOWN WITH TIME. VITALS OTHERWISE STABLE. HAS RUN SINUS RHYTHM THROUGHOUT SHIFT. URINE OUTPUT CONSISTENT, CHARTED APPROPRIATELY. STEADY 1PA TRANSFER TO BATHROOM. FLUIDS INFUSING THROUGHOUT SHIFT. BED LOCKED IN LOWEST POSTIION. CALL LIGHT LEFT WITHIN REACH. CONTINUING TO MONITOR.
[2024-08-18 04:40] LABS: Albumin, Blood 2.5 g/dL (3.4-5.0); Anion Gap 8 mmol/L (3-11); Blood Urea Nitrogen 34 mg/dL (8-24); Bun/Creatinine Ratio 22.1 (12.0-20.0); CO2, Blood 30 mmol/L (21-32); Calcium, Blood 9.3 mg/dL (8.5-10.1); Chloride, Blood 106 mmol/L (98-108); Creatinine, Blood 1.54 mg/dL (0.40-1.00); Glomerular Filtration Rate 36 (60-); Glucose, Blood 116 mg/dL (70-99); Phosphorus, Blood 3.5 mg/dL (2.5-4.9); Potassium, Blood 3.6 mmol/L (3.5-5.5); Sodium, Blood 140 mmol/L (136-145)
[2024-08-18 05:04] VITALS: BP 181/56
[2024-08-18 05:06] VITALS: BP 172/51
[2024-08-18 06:05] VITALS: BP 151/44
[2024-08-18 07:45] VITALS: BP 186/61
[2024-08-18] MEDS ORDERED: Famotidine 20 MG Tab PO SCH (09:00)
[2024-08-18 11:19] VITALS: BP 160/58
--- NOTE | 2024-08-18 15:39 | NUR ---
PT DISCHARGED TO HOME WITH DISCHARGE ORDERS, PT HAD HOME O2 EVAL DONE WELL. PT NOT REQUIRING ANY O2 SUPPLEMANTATION AT THIS TIME. PT RECEIVED A SOAP SUDS ENEMA WELL PT HAD 2 SUCCESSFUL BMS PRIOR TO LEAVING. DR DÍAZ ALSO PULLED OUT HD PORT AT THE BEDSIDE. DRESSINGS IN PLACE CDI. LAST VITALS HRR 70'S, SBP 160'S, 93 ON RA, AFEBRILE. PT HAS BEEN AMBULATING VIA WALKER. NO OTHER ISSUES REPORTED PRIOR TO DC. ALL BELONGINGS SENT WITH THE PT. ACCOMPANIED VIA WHEELCHAIR FOR TRANSPORT
[2024-08-18 17:25] LABS: HEPATITIS B SURFACE ANTIBODY <3.10 IU/L
[2024-08-18 20:50] LABS: HBV CORE ANTIBODIES,TOTAL Negative (Negative)
[2024-08-19 11:06] LABS: HEPATITIS A ANTIBODY, IGM Negative (Negative); HEPATITIS B CORE ANTIBODY, IGM Negative (Negative); HEPATITIS B SURFACE ANTIGEN Negative (Negative); HEPATITIS C AB CIA INTERP Negative (Negative); HEPATITIS C ANTIBODY CIA INDEX 0.06 IV
== END 2024-08-18 14:32 | disposition home health service (06) | DRG 673 ==
LOC: ER 12:06 → ICUE 15:17 → ER 17:22 → ICUE 17:22 → PCU 08-16 16:14
PROVIDERS: Emergency Medicine; Family Medicine; Internal Medicine Cardiovascular Disease; Internal Medicine Nephrology; ADMIT Hospitalist
PROC: 0JH63XZ Insertion of Tunneled Vascular Access Device into Chest Subcutaneous Tissue and Fascia, Percutaneous Approach (ICD-10-PCS; principal; 2024-08-15)
PROC: 02HV33Z Insertion of Infusion Device into Superior Vena Cava, Percutaneous Approach (ICD-10-PCS; 2024-08-15)
PROC: 5A1D70Z Performance of Urinary Filtration, Intermittent, Less than 6 Hours Per Day (ICD-10-PCS; 2024-08-15)
DX: N17.0 Acute kidney failure with tubular necrosis (principal); I21.A1 Myocardial infarction type 2; J96.01 Acute respiratory failure with hypoxia; E87.20 Acidosis, unspecified; I12.0 Hypertensive chronic kidney disease with stage 5 chronic kidney disease or end stage renal disease; I25.10 Atherosclerotic heart disease of native coronary artery without angina pectoris; Z95.5 Presence of coronary angioplasty implant and graft; I35.0 Nonrheumatic aortic (valve) stenosis; E78.5 Hyperlipidemia, unspecified; N18.6 End stage renal disease; M10.9 Gout, unspecified; E66.9 Obesity, unspecified; E03.9 Hypothyroidism, unspecified; Z66 Do not resuscitate; I1A.0 Resistant hypertension; L40.9 Psoriasis, unspecified; E11.22 Type 2 diabetes mellitus with diabetic chronic kidney disease; Z99.2 Dependence on renal dialysis; Z88.2 Allergy status to sulfonamides; Z88.0 Allergy status to penicillin; Z88.5 Allergy status to narcotic agent; Z88.1 Allergy status to other antibiotic agents; Z79.4 Long term (current) use of insulin; Z79.890 Hormone replacement therapy; Z79.84 Long term (current) use of oral hypoglycemic drugs; Z79.899 Other long term (current) drug therapy; Z79.02 Long term (current) use of antithrombotics/antiplatelets; Z95.2 Presence of prosthetic heart valve; Z90.710 Acquired absence of both cervix and uterus; Z90.722 Acquired absence of ovaries, bilateral; Z90.79 Acquired absence of other genital organ(s); Z98.1 Arthrodesis status; Z90.49 Acquired absence of other specified parts of digestive tract
CPT/HCPCS: 0241U; 36415; 36558; 51701; 71046; 74018; 76770; 76937; 77001; 80053; 80061; 80069; 80074; 82947; 83036; 83735; 83880; 84100; 84484; 85014; 85018; 85025; 85610; 86704; 93005; 93010; 93306; 94761; 94762; 97162; 97165; 97530; 97535; 99152; 99285-25; A9270; C1750; C1769; C1894; J0360; J0612; J1644; J1815; J2250; J2405; J3010; J7030; J7050; J7799

== ENCOUNTER → 2024-08-27 | Outpatient (CLI) | payer OTHER ==
[~2024-08-27] MED LIST changes: +Isosorbide Mono30 MG PO
== END ==
LOC: LAB 12:00 → LAB SHORT 12:00
DX: N39.0 Urinary tract infection, site not specified (principal)
CPT/HCPCS: 87086

== ENCOUNTER → 2025-01-30 | Outpatient (CLI) | payer OTHER ==
[2025-01-30 22:51] LABS: Creatinine, Urine Random 18.9 mg/dL (27.00-270.00)
[2025-01-30 23:12] LABS: Microalb/Creat Ratio UR, Rand 2947.09 mg/g (0.000-30.000); Microalbumin, Random Urine 557.0 mg/L (0.000-20.000)
== END ==
LOC: LAB SHORT 16:56 → LAB 16:56
PROVIDERS: Physician Assistant
DX: E11.65 Type 2 diabetes mellitus with hyperglycemia (principal)
CPT/HCPCS: 82043; 82570